=== PATIENT | female | born 2000 | race Hispanic/Latino ===

== ENCOUNTER 2019-07-05 03:35 | Emergency (ER) | payer OTHER ==
--- NOTE | 2019-07-05 04:44 | EDPHYS ---
Physician Documentation [facility] Name: Nikkie Bowles Age: 19 yrs Sex: Female : 2000 Arrival Date: 07/05/2019 Time: 03:37 Bed 13 Private MD: ED Physician Jeremy Morales HPI: 07/04 04:06 This 19 yrs old Female presents to ER via Ambulatory with complaints of Cough, simin Vomiting. 04:06 The patient or guardian reports cough, described as mild. Onset: The symptoms/episode simin began/occurred 10 day(s) ago. Severity of symptoms: At their worst the symptoms were mild, in the emergency department the symptoms are unchanged. Modifying factors: The symptoms are alleviated by nothing, the symptoms are aggravated by nothing. Associated signs and symptoms: The patient has no apparent associated signs or symptoms. The patient has not experienced similar symptoms in the past. 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 - Social history:: Smoking status: Patient denies any tobacco usage or history of. - Family history:: not pertinent. ROS: 04:07 Constitutional: Negative for fever, chills, and weight loss, Eyes: Negative for injury, simin pain, redness, and discharge, ENT: Negative for injury, pain, and discharge, Neck: Negative for injury, pain, and swelling, Cardiovascular: Negative for chest pain, palpitations, and edema, Abdomen/GI: Negative for abdominal pain, nausea, vomiting, diarrhea, and constipation, Back: Negative for injury and pain, : Negative for injury, bleeding, discharge, and swelling, MS/Extremity: Negative for injury and deformity, Skin: Negative for injury, rash, and discoloration, Neuro: Negative for headache, weakness, numbness, tingling, and seizure, Psych: Negative for depression, anxiety, suicide ideation, homicidal ideation, and hallucinations, Allergy/Immunology: Negative for hives, rash, and allergies, Endocrine: Negative for neck swelling, polydipsia, polyuria, polyphagia, and marked weight changes, Hematologic/Lymphatic: Negative for swollen nodes, abnormal bleeding, and unusual bruising. 04:07 Respiratory: Positive for cough, with no reported sputum. Exam: 04:09 Constitutional: This is a well developed, well nourished patient who is awake, alert, simin and in no acute distress. Head/Face: Normocephalic, atraumatic. Eyes: Pupils equal round and reactive to light, extra-ocular motions intact. Lids and lashes normal. Conjunctiva and sclera are non-icteric and not injected. Cornea within normal limits. Periorbital areas with no swelling, redness, or edema. ENT: Nares patent. No nasal discharge, no septal abnormalities noted. Tympanic membranes are normal and external auditory canals are clear. Oropharynx with no redness, swelling, or masses, exudates, or evidence of obstruction, uvula midline. Mucous membranes moist. Neck: Trachea midline, no thyromegaly or masses palpated, and no cervical lymphadenopathy. Supple, full range of motion without nuchal rigidity, or vertebral point tenderness. No Meningismus. Chest/axilla: Normal chest wall appearance and motion. Nontender with no deformity. No lesions are appreciated. Cardiovascular: Regular rate and rhythm with a normal S1 and S2. No gallops, murmurs, or rubs. Normal PMI, no JVD. No pulse deficits. Abdomen/GI: Soft, non-tender, with normal bowel sounds. No distension or tympany. No guarding or rebound. No evidence of tenderness throughout. Back: No spinal tenderness. No costovertebral tenderness. Full range of motion. Skin: Warm, dry with normal turgor. Normal color with no rashes, no lesions, and no evidence of cellulitis. MS/ Extremity: Pulses equal, no cyanosis. Neurovascular intact. Full, normal range of motion. Neuro: Awake and alert, GCS 15, oriented to person, place, time, and situation. Cranial nerves II-XII grossly intact. Motor strength 5/5 in all extremities. Sensory grossly intact. Cerebellar exam normal. Normal gait. 04:09 Musculoskeletal/extremity: Extremities: grossly normal except: ROM: no acute changes, Circulation is intact in all extremities. Sensation intact. DVT Exam: No signs of deep vein thrombosis. no pain, no swelling, no tenderness, negative Homans' sign noted on exam, no appreciated bluish discoloration, no erythema, no increased warmth. Vital Signs: 03:58 BP 124 / 91; Pulse 93; Resp 18; Temp 99; Pulse Ox 100% ; Weight 85.28 kg; Height 5 ft. rv (152.40 cm); 03:58 Body Mass Index 36.72 (85.28 kg, 152.40 cm) rv MDM: 03:39 Patient medically screened. [facility] 04:10 Data reviewed: vital signs, nurses notes, lab test result(s), urinalysis, radiologic [facility] studies, plain films. 07/04 04:05 Order name: Chest Pa And Lat (2 Views) XRAY [facility] 07/04 04:05 Order name: Urine Dipstick-Ancillary (obtain specimen); Complete Time: 04:48 [facility] 07/04 04:05 Order name: Urine Test (obtain specimen); Complete Time: 04:48 [facility] Administered Medications: 04:43 CANCELLED (Duplicate Order): Zithromax 500 mg PO once [facility] 04:52 CANCELLED (Duplicate Order): levofloxacin 500 mg 100 ml IVPB once over 60 mins [facility] 05:03 Drug: LevOfloxacin 500 mg Route: PO; rv 05:03 Follow up: Response: Medication administered at discharge. rv Disposition: 07/05/19 04:42 Discharged to Home. Impression: Cough, Bronchitis, not specified as acute or chronic, Urinary tract infection, site not specified. - Condition is Stable. - Discharge Instructions: Acute Bronchitis, Adult, Urinary Tract Infection, Adult, Cool Mist Vaporizer, Urinary Tract Infection, Adult, [id number], Cough, Adult. - Prescriptions for Bromfed DM 2- 30-10 mg/5 mL Oral syrup - take 10 milliliter by ORAL route every 6 hours; 180 milliliter. Levaquin 500 mg Oral Tablet - take 1 tablet by ORAL route once daily for 7 days; 7 tablet. Zofran 4 mg Oral Tablet - take 1 tablet by ORAL route every 12 hours As needed; 14 tablet. - Medication Reconciliation Form, Thank You Letter, Antibiotic Education, Prescription Opioid Use form. - Follow up: Private Physician; When: 2 - 3 days; Reason: Recheck today's complaints, Continuance of care, Re-evaluation by your physician. - Problem is new. - Symptoms have improved. Signatures: Dispatcher [employer] EDMS Andrew, Jeremy, MD MD simin Jamie, Terrell, RN RN rv Corrections: (The following items were deleted from the chart) 04:43 04:41 Zithromax 500 mg PO once ordered. counts include 234 beds at the [facility] 04:44 04:42 07/05/2019 04:42 Discharged to Home. Impression: Cough; Bronchitis, not specified simin as acute or chronic. Condition is Stable. Forms are Medication Reconciliation Form, Thank You Letter, Antibiotic Education, Prescription Opioid Use. Follow up: Private Physician; When: 2 - 3 days; Reason: Recheck today's complaints, Continuance of care, Re-evaluation by your physician. Problem is new. Symptoms have improved. [facility] 04:52 04:43 levofloxacin 500 mg 100 ml IVPB once over 60 mins ordered. counts include 234 beds at the [facility] 05:02 04:44 07/05/2019 04:42 Discharged to Home. Impression: Cough; Bronchitis, not specified rv as acute or chronic; Urinary tract infection, site not specified. Condition is Stable. Discharge Instructions: Cool Mist Vaporizer, Cough, Adult. Forms are Medication Reconciliation Form, Thank You Letter, Antibiotic Education, Prescription Opioid Use. Follow up: Private Physician; When: 2 - 3 days; Reason: Recheck today's complaints, Continuance of care, Re-evaluation by your physician. Problem is new. Symptoms have improved. [facility]
--- NOTE | 2019-07-05 04:44 | ER ---
Nurse's Notes [facility] Name: Nikkie Bowles Age: 19 yrs Sex: Female : 2000 Arrival Date: 07/05/2019 Time: 03:37 Bed 13 Private MD: Diagnosis: Cough;Bronchitis, not specified as acute or chronic;Urinary tract infection, site not specified Presentation: 07/04 03:58 Chief complaint: Patient states: I GOT COLDS FROM MY SISTER, BUT SHE GOT BETTER AND I rv AM GETTING WORSE. ITS BEEN A WEEK, AND I AM COUGHING AND HACKING A LOT THAT MY THROAT IS SORE AND I VOMITED TODAY FOR THREE TIMES BECAUSE OF COUGHING. DENIES FEVER. Coronavirus screen: Patient reports a subjective fever or greater than 100.4F, or cough, or shortness of breath, or difficulty breathing. Surgical mask placed on patient. Patient moved to private room, placed in contact and droplet isolation with eye protection until further assessment. Patient denies travel on a cruise ship or to a country the [facility] currently lists as an affected area. Patient denies contact with known and/or suspected case of COVID-19. Ebola Screen: No symptoms or risks identified at this time. Initial Sepsis Screen: Does the patient meet any 2 criteria? No. Patient's initial sepsis screen is negative. Does the patient have a suspected source of infection? No. Patient's initial sepsis screen is negative. Risk Assessment: Do you want to hurt yourself or someone else? Patient reports no desire to harm self or others. 03:58 Method Of Arrival: Ambulatory rv 03:58 Acuity: ADRIANA 4 rv 05:27 Onset of symptoms was June 25, 2019. 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 - Social history:: Smoking status: Patient denies any tobacco usage or history of. - Family history:: not pertinent. Screenin:00 Abuse screen: Denies threats or abuse. Denies injuries from another. Nutritional rv screening: No deficits noted. Tuberculosis screening: No symptoms or risk factors identified. Fall Risk None identified. Assessment: 04:30 General: Appears in no apparent distress. Behavior is calm, cooperative. rv 04:30 Pain: Denies pain. Neuro: Level of Consciousness is awake, alert, obeys commands, rv Oriented to person, place, time, situation. Cardiovascular: Patient's skin is warm and dry. Respiratory: Airway is patent. GI: Abdomen is round non-distended, Reports vomiting. Derm: Skin is intact. 04:45 General: Appears in no apparent distress. comfortable, unkempt, well developed, well ch2 nourished, Behavior is calm, cooperative, appropriate for age. 04:45 Pain: Denies pain. Neuro: No deficits noted. Level of Consciousness is awake, alert, ch2 obeys commands, Oriented to person, place, time, situation, Appropriate for age Gait is steady, Speech is normal. Cardiovascular: No deficits noted. Denies chest pain, lightheadedness, shortness of breath, syncope. Respiratory: No deficits noted. Parent/caregiver reports the patient having cough that is non-productive, dry, persistent. GI: No deficits noted. No signs and/or symptoms were reported involving the gastrointestinal system. Reports nausea, vomiting. : No deficits noted. No signs and/or symptoms were reported regarding the genitourinary system. Denies burning with urination, inability to void. EENT: No deficits noted. No signs and/or symptoms were reported regarding the EENT system. Derm: No deficits noted. No signs and/or symptoms reported regarding the dermatologic system. Skin is intact, is healthy with good turgor. Musculoskeletal: No deficits noted. No signs and/or symptoms reported regarding the musculoskeletal system. Circulation, motion, and sensation intact. Range of motion:. Vital Signs: 03:58 BP 124 / 91; Pulse 93; Resp 18; Temp 99; Pulse Ox 100% ; Weight 85.28 kg; Height 5 ft. rv (152.40 cm); 03:58 Body Mass Index 36.72 (85.28 kg, 152.40 cm) rv ED Course: 03:37 Patient arrived in ED. ds1 03:39 Jeremy Morales MD is Attending Physician. simin 04:01 Triage completed. rv 04:02 Arm band placed on Patient placed Patient notified of wait time. rv 04:30 Patient has correct armband on for positive identification. Pulse ox on. NIBP on. rv 04:34 Chest Pa And Lat (2 Views) XRAY In Process Unspecified. EDMS 04:59 Terrell Ayala, RN is Primary Nurse. rv 05:01 No provider procedures requiring assistance completed. Patient did not have IV access rv during this emergency room visit. Administered Medications: 04:43 CANCELLED (Duplicate Order): Zithromax 500 mg PO once simin 04:52 CANCELLED (Duplicate Order): levofloxacin 500 mg 100 ml IVPB once over 60 mins simin 05:03 Drug: LevOfloxacin 500 mg Route: PO; rv 05:03 Follow up: Response: Medication administered at discharge. rv Outcome: 04:42 Discharge ordered by . simin 05:02 Discharged to home ambulatory. rv 05:02 Condition: good 05:02 Discharge instructions given to patient, Instructed on discharge instructions, follow up and referral plans. medication usage, Demonstrated understanding of instructions, follow-up care, medications, Prescriptions given X 3. 05:02 Patient left the ED. rv Signatures: Dispatcher [employer] EDMS Jeremy Morales MD MD cha Sanford, Demi ds1 Cassy Burns, JULIETA RN ch2 Terrell Ayala, JULIETA RN rv Corrections: (The following items were deleted from the chart) 04:02 03:58 Coronavirus screen: Patient reports a subjective fever or greater than 100.4F, or rv cough, or shortness of breath, or difficulty breathing. Patient denies travel on a cruise ship or to a country the [facility] currently lists as an affected area. Patient denies contact with known and/or suspected case of COVID-19. rv
[2019-07-05] MEDS ORDERED: levoFLOXacin 500 MG TAB ONE (04:59)
[2019-07-05 05:20] VITALS: BP 124/91; TEMP 99; O2SAT 100
--- NOTE | 2019-07-05 06:01 | RAD REPORT ---
EXAM DESCRIPTION: Vadim Smart (2 Views)07/05/2019 4:33 am CLINICAL HISTORY: Cough COMPARISON: None FINDINGS: The lungs appear clear of acute infiltrate. The heart is normal size IMPRESSION: No acute abnormalities displayed
== END 2019-07-05 05:02 | disposition home or self-care (01) ==
LOC: ER 03:35
DX: J40 Bronchitis, not specified as acute or chronic (principal); N39.0 Urinary tract infection, site not specified
CPT/HCPCS: 71046; 99284